=== PATIENT | female | born 1990 | race Caucasian/White ===

== ENCOUNTER 2020-06-05 09:17 | Emergency (ER) | payer MEDICAID ==
[~2020-06-05] VITALS: Ht 165.1 cm; Wt 74.4 kg
[2020-06-05 09:38] VITALS: BP 114/61
[2020-06-05] MEDS ORDERED: IBUP-1984 PO (10:18)
[2020-06-05] MEDS ORDERED: AMOX-422 PO (10:18)
[2020-06-05] MEDS ORDERED: ACET-1015 PO (10:18)
== END 2020-06-05 10:45 | disposition home or self-care (01) ==
LOC: ER 09:17
DX: S02.5XXA Fracture of tooth (traumatic), initial encounter for closed fracture (principal); K02.9 Dental caries, unspecified; K04.7 Periapical abscess without sinus; Z88.6 Allergy status to analgesic agent; Z79.899 Other long term (current) drug therapy; Z91.040 Latex allergy status; Z88.5 Allergy status to narcotic agent; W22.8XXA Striking against or struck by other objects, initial encounter; Y93.89 Activity, other specified; Y92.89 Other specified places as the place of occurrence of the external cause; Y99.8 Other external cause status
CPT/HCPCS: 99283

== ENCOUNTER 2020-07-17 08:53 | Emergency (ER) | payer MEDICAID ==
[~2020-07-17] VITALS: Ht 167.6 cm; Wt 75.0 kg
[2020-07-17] MEDS ORDERED: triamcinolone acetonide 40mg/ml inj IM ONE (09:30)
[2020-07-17] MEDS ORDERED: PRED20TA PO (09:47)
[2020-07-17 10:08] VITALS: BP 120/74
== END 2020-07-17 10:11 | disposition home or self-care (01) ==
LOC: ER 08:53
DX: R21 Rash and other nonspecific skin eruption (principal); Z72.89 Other problems related to lifestyle; Z88.6 Allergy status to analgesic agent; Z88.5 Allergy status to narcotic agent; Z91.040 Latex allergy status; Z79.899 Other long term (current) drug therapy
CPT/HCPCS: 96372; 99283; J3301

== ENCOUNTER 2022-08-04 15:08 | Emergency (ER) | payer MEDICAID ==
[~2022-08-04] VITALS: Ht 167.6 cm; Wt 74.0 kg
[2022-08-04 15:10] VITALS: BP 112/68
[2022-08-04] MEDS ORDERED: ketorolac tromethamine 15mg/ml inj. IM ONE (15:50)
== END 2022-08-04 16:16 | disposition home or self-care (01) ==
LOC: ER 15:08
DX: S69.91XA Unspecified injury of right wrist, hand and finger(s), initial encounter (principal); Z88.6 Allergy status to analgesic agent; Z91.040 Latex allergy status; W01.0XXA Fall on same level from slipping, tripping and stumbling without subsequent striking against object, initial encounter; Y93.89 Activity, other specified; Y92.89 Other specified places as the place of occurrence of the external cause; Y99.8 Other external cause status
CPT/HCPCS: 29125; 73110; 73130; 96372; 99284; J1885